=== PATIENT | female | born 1985 | race Caucasian/White ===

== ENCOUNTER 2020-01-05 19:54 | Observation (INO) ==
[2020-01-05] MEDS ORDERED: Ringers Solution, Lactated 1,000 ML IVC ONE (21:22)
[2020-01-05] MEDS ORDERED: *HR* Promethazine 25 MG/ML VIAL IVP STA (21:23)
[2020-01-05 21:39] LABS: Bilirubin,Urine Negative (Negative); Blood,Urine Negative (Negative); Clarity,Urine Clear (Clear); Color,Urine Yellow (Yellow); Glucose,Urine (UA) Normal (Normal); Ketones,Urine Negative (Negative); Leukocyte Esterase,Urine Negative (Negative); Nitrite,Urine Negative (Negative); PH,Urine 7.5 pH Units (5.0-8.0); Protein,Urine Negative (Neg-Trace); Urobilinogen,Urine Normal (Normal)
[2020-01-05 21:46] LABS: Basophils % 0.2 %; Eosinophils # 0.3 K/mcL (0.0-0.6); Hematocrit 41.3 % (35.3-44.9); Hemoglobin 13.8 g/dL (11.5-15.4); Immature Granulocytes % 0.5 % (0-4); Immature Platelets 34.9 % (1.1-6.1); Lymphocytes # 1.2 K/mcL (0.6-4.6); Lymphocytes % 17.5 %; Mean Corpuscular HGB Conc 33.4 g/dL (31.6-35.5); Mean Corpuscular Hemoglobin 27.5 pg (28.0-33.3); Mean Corpuscular Volume 82.4 fL (83.0-100.0); Monocytes # 0.3 K/mcL (0.0-1.3); Monocytes % 4.7 %; Neutrophils # 4.8 K/mcL (1.6-8.9); Red Blood Count 5.01 M/mcL (3.82-4.97); Red Cell Distribution Width 14.5 % (11.5-14.5); Segmented Neutrophils % 72.1 %; White Blood Count 6.6 K/mcL (4.3-11.1)
[2020-01-05] MEDS ORDERED: 0.9 % Sodium Chloride 1,000 ML IVC ONE (21:47)
[2020-01-05] MEDS ORDERED: *HR* LORazepam 2 MG/ML VIAL IVP ONE (21:47)
[2020-01-05 21:54] LABS: Alanine Aminotransferase 10 Units/L (7-52); Albumin 4.5 g/dL (3.5-5.7); Albumin/Globulin Ratio 1.7 (1.1-2.2); Alkaline Phosphatase 43 Units/L (34-104); Aspartate Amino Transferase 15 Units/L (13-39); BUN/Creatinine Ratio 10 (6-26); Bilirubin,Total 0.3 mg/dL (0.3-1.0); Blood Urea Nitrogen 10 mg/dL (6-20); Calcium 9.7 mg/dL (8.6-10.3); Carbon Dioxide 25 mEq/L (23-29); Chloride 103 mEq/L (98-107); Globulin 2.7 g/dL (2.4-3.5); Glucose 84 mg/dL (70-105); Osmolality,Calculated 280 (280-300); Potassium 3.7 mEq/L (3.5-5.1); Sodium 136 mEq/L (136-145); Total Protein 7.2 g/dL (6.4-8.9); eGFR For African Americans > 60 (> 60); eGFR For Non-African Americans > 60 (> 60)
[2020-01-05 22:30] LABS: Platelet Count 29 K/mcL (140-400)
[2020-01-05 22:31] LABS: Platelet Estimate Marked Decrease (Normal)
[2020-01-05] MEDS ORDERED: Dexamethasone 10 MG/ML VIAL PO ONE (23:51)
[2020-01-06] MEDS ORDERED: Naloxone 0.4 MG/ML INJ IVP PRN (00:31)
[2020-01-06] MEDS ORDERED: DIAZEPAM RC PRN (00:53)
[2020-01-06] MEDS ORDERED: diazePAM 10 MG TABLET PO PRN (00:53)
[2020-01-06 02:45] LABS: Basophils % 0.1 %; Hemoglobin 13.1 g/dL (11.5-15.4); Red Cell Distribution Width 14.6 % (11.5-14.5)
[2020-01-06 02:47] LABS: Eosinophils # 0.3 K/mcL (0.0-0.6); Eosinophils % 2.6 %; Hematocrit 38.8 % (35.3-44.9); Immature Granulocytes % 0.3 % (0-4); Immature Platelets 30.8 % (1.1-6.1); Lymphocytes # 0.9 K/mcL (0.6-4.6); Lymphocytes % 9.8 %; Mean Corpuscular HGB Conc 33.8 g/dL (31.6-35.5); Mean Corpuscular Hemoglobin 27.8 pg (28.0-33.3); Mean Corpuscular Volume 82.2 fL (83.0-100.0); Monocytes # 0.2 K/mcL (0.0-1.3); Monocytes % 1.7 %; Neutrophils # 8.2 K/mcL (1.6-8.9); Red Blood Count 4.72 M/mcL (3.82-4.97); Segmented Neutrophils % 85.5 %; White Blood Count 9.6 K/mcL (4.3-11.1)
[2020-01-06 02:54] LABS: Platelet Count 28 K/mcL (140-400)
[2020-01-06 02:58] LABS: Magnesium 1.8 mg/dL (1.6-2.6); Phosphorous 3.1 mg/dL (2.7-4.5)
[2020-01-06 03:28] LABS: Folate > 22.3 ng/mL (3.0-16.0); Procalcitonin < 0.02 ng/mL (0.00-0.15); Vitamin B12 401 pg/mL (250-1100)
[2020-01-06 04:19] LABS: Platelet Estimate Marked Decrease (Normal)
[2020-01-06] MEDS ORDERED: diazePAM 10 MG TABLET PO SCH (09:00)
[2020-01-06] MEDS ORDERED: Buprenorphine Hcl/Naloxone Hcl 8-2 MG SL SCH (09:00)
[2020-01-06] MEDS ORDERED: Acetaminophen 325 MG TABLET PO PRN (10:03)
[2020-01-06] MEDS: *HR* Promethazine 25 MG/ML VIAL IVP PRN ×2 (10:28→22:51)
[2020-01-06] MEDS: *HR* Buprenorphine HCl 8 MG TAB.SUBL SL SCH ×2 (11:05→19:52)
[2020-01-06] MEDS ORDERED: Dexamethasone 10 MG/ML VIAL IVP SCH (12:15)
[2020-01-06] MEDS: diazePAM 10 MG TABLET PO PRN (20:16)
[2020-01-07] MEDS: *HR* Promethazine 25 MG/ML VIAL IVP PRN (05:21)
[2020-01-07 05:34] LABS: Mean Corpuscular HGB Conc 33.5 g/dL (31.6-35.5)
[2020-01-07 05:36] LABS: Hemoglobin 13.4 g/dL (11.5-15.4); Immature Granulocytes % 0.6 % (0-4); Immature Platelets 27.7 % (1.1-6.1); Lymphocytes % 8.3 %; Mean Corpuscular Hemoglobin 27.5 pg (28.0-33.3); Monocytes # 0.7 K/mcL (0.0-1.3); Monocytes % 5.9 %; Neutrophils # 10.5 K/mcL (1.6-8.9); Platelet Count 58 K/mcL (140-400); Red Blood Count 4.88 M/mcL (3.82-4.97); Red Cell Distribution Width 14.6 % (11.5-14.5); Segmented Neutrophils % 85.2 %; White Blood Count 12.3 K/mcL (4.3-11.1)
[2020-01-07] MEDS: *HR* Buprenorphine HCl 8 MG TAB.SUBL SL SCH (08:28)
[2020-01-07] MEDS ORDERED: Famotidine 20 MG TABLET PO SCH (09:00)
[2020-01-07] MEDS ORDERED: Dexamethasone 10 MG/ML VIAL PO SCH ×2 (09:00→09:38)
[2020-01-07 09:26] VITALS: BP 108/71
[2020-01-07] MEDS: diazePAM 10 MG TABLET PO PRN (10:03)
== END 2020-01-07 11:57 | disposition home or self-care (01) ==
LOC: 2NENU 19:54 → EMEROOARM 19:54 → 2NENU 01-06 00:27
PROVIDERS: ADMIT Internal Medicine; ATTEND Internal Medicine

== ENCOUNTER 2021-01-09 08:07 | Inpatient (IN) ==
[2021-01-09] MEDS ORDERED: Scopolamine Patch 1.5 MG PATCH.TD72 TD ONE (08:20)
[2021-01-09] MEDS ORDERED: Acetaminophen IV 1,000 MG/100 ML BAG IVPB ONE (08:20)
[2021-01-09] MEDS ORDERED: *HR* Meperidine 25 MG/ML SYRINGE IVP PRN (08:20)
[2021-01-09] MEDS ORDERED: Promethazine 6.25 MG in Water for inj. (sterile) 20 ML IVPB PRN (08:20)
[2021-01-09] MEDS ORDERED: Lidocaine HCL 4 ML Topical Solution (Laryng-O-Jet Kit Sterile Pak) TP ONE (08:58)
[2021-01-09] MEDS ORDERED: Lidocaine -MPF 2% 2 ML VIAL ONE (09:00)
[2021-01-09] MEDS ORDERED: *HR* Propofol 200 MG/20 ML VIAL IVP ONE (09:00)
[2021-01-09] MEDS ORDERED: *HR* Rocuronium Bromide 50 MG/5 ML VIAL ONE (09:00)
[2021-01-09] MEDS ORDERED: *HR* FentaNYL (PF) 100 MCG/2 ML VIAL ONE (09:00)
[2021-01-09] MEDS ORDERED: *HR* Midazolam HCl 2 MG/2 ML VIAL ONE (09:00)
[2021-01-09] MEDS ORDERED: Clindamycin 900 MG/50 ML 900 MG/50 ML IV.SOLN IVPB ONE (09:26)
[2021-01-09] MEDS ORDERED: Albumin Human 5% 12.5 GM/250 ML IV.SOLN ONE (09:39)
[2021-01-09] MEDS ORDERED: *HR* Vasopressin 20 UNIT/ML VIAL ONE (09:39)
[2021-01-09] MEDS ORDERED: *HR* Norepinephrine 4 MG/4 ML VIAL IVC ONE (09:39)
[2021-01-09] MEDS ORDERED: Hydrocortisone Sodium Succ 100 MG/2 ML VIAL ONE (09:51)
[2021-01-09] MEDS: Ringers Solution, Lactated 1,000 ML IVC SCH ×2 (10:00→11:35)
[2021-01-09] MEDS ORDERED: *HR* PHENYLEPHRINE 1,000 MCG/10 ML SYRINGE IVP ONE (10:37)
[2021-01-09] MEDS ORDERED: Sugammadex Sodium 200 MG/2 ML VIAL IV ONE (10:51)
[2021-01-09] MEDS ORDERED: *HR* HYDROMORPHONE 2 MG/ML VIAL ONE (11:34)
[2021-01-09] MEDS: *HR* HYDROmorphone PF 0.5 MG/0.5 ML SYRINGE IVP PRN ×2 (11:56→12:11)
[2021-01-09] MEDS ORDERED: Ondansetron 4 MG/2 ML VIAL IVP PRN (13:31)
[2021-01-09] MEDS ORDERED: diazePAM 10 MG TABLET PO PRN (13:31)
[2021-01-09 13:33] LABS: Hematocrit 36.2 % (35.3-44.9); Mean Corpuscular HGB Conc 33.1 g/dL (31.6-35.5); Mean Corpuscular Hemoglobin 27.8 pg (28.0-33.3); Mean Corpuscular Volume 83.8 fL (83.0-100.0); Mean Platelet Volume 11.9 fL (9.4-12.4); Platelet Count 100 K/mcL (140-400); Red Blood Count 4.32 M/mcL (3.82-4.97); Red Cell Distribution Width 14.5 % (11.5-14.5)
[2021-01-09 13:45] LABS: White Blood Count 23.2 K/mcL (4.3-11.1)
[2021-01-09] MEDS: 0.9 % Sodium Chloride 1,000 ML IVC SCH (13:46)
[2021-01-09 13:57] LABS: Lymphocytes # 1.4 K/mcL (0.6-4.6); Neutrophils # 21.8 K/mcL (1.6-8.9); Platelet Estimate Decreased (Normal)
[2021-01-09] MEDS: Morphine Sulfate Oral CONC 10 MG/0.5 ML ORAL.SYG SL PRN ×3 (15:01→23:15)
[2021-01-09] MEDS: Acetaminophen IV 1,000 MG/100 ML BAG IVPB SCH ×2 (17:33→23:25)
[2021-01-09] MEDS: *HR* Heparin 5,000 UNIT/ML VIAL SQ SCH (17:34)
[2021-01-09] MEDS: lamoTRIgine 100 MG TABLET PO SCH (20:06)
[2021-01-09] MEDS: *HR* OxyCODONE Immed Rel 5 MG TABLET PO PRN (20:12)
[2021-01-10] MEDS: 0.9 % Sodium Chloride 1,000 ML IVC SCH (02:47)
[2021-01-10] MEDS: Morphine Sulfate Oral CONC 10 MG/0.5 ML ORAL.SYG SL PRN ×2 (04:08→08:11)
[2021-01-10] MEDS: Acetaminophen IV 1,000 MG/100 ML BAG IVPB SCH ×2 (05:52→11:20)
[2021-01-10] MEDS: *HR* Heparin 5,000 UNIT/ML VIAL SQ SCH (05:52)
[2021-01-10] MEDS: *HR* OxyCODONE Immed Rel 5 MG TABLET PO PRN ×2 (05:54→14:03)
[2021-01-10 06:17] LABS: Basophils % 0.1 %; Eosinophils % 0.2 %; Hematocrit 33.1 % (35.3-44.9); Hemoglobin 10.8 g/dL (11.5-15.4); Immature Granulocytes % 0.5 % (0-4); Lymphocytes # 1.9 K/mcL (0.6-4.6); Lymphocytes % 12.6 %; Mean Corpuscular HGB Conc 32.6 g/dL (31.6-35.5); Mean Corpuscular Hemoglobin 27.8 pg (28.0-33.3); Mean Corpuscular Volume 85.3 fL (83.0-100.0); Mean Platelet Volume 12.7 fL (9.4-12.4); Monocytes # 1.4 K/mcL (0.0-1.3); Monocytes % 9.3 %; Neutrophils # 11.5 K/mcL (1.6-8.9); Platelet Count 120 K/mcL (140-400); Red Blood Count 3.88 M/mcL (3.82-4.97); Red Cell Distribution Width 14.7 % (11.5-14.5); Segmented Neutrophils % 77.3 %; White Blood Count 14.9 K/mcL (4.3-11.1)
[2021-01-10 06:50] LABS: BUN/Creatinine Ratio 11 (6-26); Blood Urea Nitrogen 7 mg/dL (6-20); Carbon Dioxide 24 mEq/L (23-29); Chloride 107 mEq/L (98-107); Glucose 95 mg/dL (70-105); Lipase 35 Units/L (11-82); Osmolality,Calculated 284 (280-300); Potassium 3.4 mEq/L (3.5-5.1); Sodium 138 mEq/L (136-145); eGFR For African Americans > 60 (> 60); eGFR For Non-African Americans > 60 (> 60)
[2021-01-10] MEDS: lamoTRIgine 100 MG TABLET PO SCH (08:10)
[2021-01-10] MEDS ORDERED: predniSONE 20 MG TABLET PO SCH (09:00)
[2021-01-10] MEDS ORDERED: Pantoprazole 40 MG VIAL IVP SCH (09:00)
[2021-01-10] MEDS ORDERED: Morphine Sulfate Oral CONC 10 MG/0.5 ML ORAL.SYG SL ONE (10:15)
[2021-01-10 10:50] VITALS: BP 101/64
== END 2021-01-10 15:22 | disposition home or self-care (01) | DRG 650 ==
LOC: SAMDAY 08:07 → 3ANU 13:30
PROVIDERS: ADMIT Surgery; ATTEND Surgery